=== PATIENT | female | born 1935 | race African-American/Black ===

== ENCOUNTER 2021-10-15 11:12 | Inpatient (IN) | payer MEDICARE, MEDICAID ==
[~2021-10-15] VITALS: Ht 152.4 cm; Wt 90.7 kg
[2021-10-15] MEDS ORDERED: SODIUM CHLORIDE 0.9% 250 ML IV ONE (11:45)
[2021-10-15 12:10] LABS: BASOPHILS % 0.8 % (0.0-2.0); EOSINOPHILS % 3.1 % (0.0-5.0); HEMATOCRIT. 26.7 % (36.0-48.0); HEMOGLOBIN. 9.1 g/dL (12.0-16.0); LYMPHOCYTES % 22.8 % (20.0-50.0); MEAN CORPUSCULAR HEMOGLOBIN 28.3 pg (28.0-32.0); MEAN CORPUSCULAR VOLUME 83.2 fL (81.0-99.0); MEAN PLATELET VOLUME 6.3 fl (7.4-10.4); MONOCYTES % 8.3 % (2.0-8.0); PLATELET 375 x1000/uL (130-400); RED BLOOD CELL COUNT 3.21 mill/uL (4.2-5.4); RED CELL DISTRIBUTION WIDTH 14.9 % (11.6-14.6)
[2021-10-15 12:20] LABS: CHLORIDE 105 mEq/L (98-107)
[2021-10-15 12:26] LABS: PROTHROMBIN TIME 10.8 sec (9.6-11.0)
[2021-10-15] MEDS ORDERED: LOPERAMIDE HCL 2MG CAPSULE PO PRN (20:30)
[2021-10-15] MEDS ORDERED: CLONIDINE 0.1MG TABLET PO PRN (20:30)
[2021-10-15] MEDS ORDERED: ACETAMINOPHEN 325MG TABLET PO PRN ×2 (20:30)
[2021-10-15] MEDS ORDERED: ONDANSETRON HCL 4MG/2ML INJ IV PRN (20:30)
[2021-10-15] MEDS ORDERED: DIPHENHYDRAMINE 50MG/ML VIAL IV PRN (20:30)
[2021-10-15 21:45] VITALS: BP 135/65
[2021-10-15] MEDS: SODIUM CHLORIDE 0.9% INJ 3ML FLUSH IVF SCH (22:30)
[2021-10-16] VITALS (7 sets, daily range): BP systolic 110–161; BP diastolic 40–66
[2021-10-16] MEDS ORDERED: PRAV20TA57 PO (01:04)
[2021-10-16] MEDS ORDERED: ASCO125T PO (01:05)
[2021-10-16] MEDS ORDERED: HYDR-4134 PO (01:06)
[2021-10-16] MEDS ORDERED: CHOL400D7 PO (01:06)
[2021-10-16] MEDS ORDERED: GABA-529 PO (01:11)
[2021-10-16] MEDS ORDERED: CILO100T PO (01:11)
[2021-10-16] MEDS ORDERED: FURO20TA4 PO (01:11)
[2021-10-16] MEDS ORDERED: MECL-159 PO (01:11)
[2021-10-16] MEDS ORDERED: CALC-1042 PO (01:11)
[2021-10-16] MEDS ORDERED: LATA5DRO LEFTEYE (01:11)
[2021-10-16] MEDS ORDERED: DORZ10DR9 LEFTEYE (01:11)
[2021-10-16] MEDS ORDERED: ASPI-1406 PO (01:11)
[2021-10-16] MEDS: SODIUM CHLORIDE 0.9% INJ 3ML FLUSH IVF SCH ×3 (06:31→20:35)
[2021-10-16 07:39] LABS: BASOPHILS % 0.8 % (0.0-2.0); LYMPHOCYTES % 26.4 % (20.0-50.0); MEAN CORPUSCULAR HEMOGLOBIN 27.6 pg (28.0-32.0); MEAN CORPUSCULAR VOLUME 83.3 fL (81.0-99.0); MEAN PLATELET VOLUME 6.7 fl (7.4-10.4); MONOCYTES % 9.9 % (2.0-8.0); NEUTROPHILS % 59.9 % (40.0-76.0); PLATELET 352 x1000/uL (130-400); RED BLOOD CELL COUNT 3.25 mill/uL (4.2-5.4); RED CELL DISTRIBUTION WIDTH 15.1 % (11.6-14.6)
[2021-10-16] MEDS ORDERED: BRIMONIDINE 0.2% OPHTH DROPS 5ML BOTHEYE SCH (09:00)
[2021-10-16] MEDS: AMLODIPINE 2.5MG TABLET PO SCH (09:04)
[2021-10-16] MEDS: BRIMONIDINE 0.2% OPHTH DROPS 5ML BOTHEYE SCH ×2 (12:09→20:36)
[2021-10-16] MEDS ORDERED: SODIUM POLYSTYRENE SULFONATE 15 G/60 ML BOT PO NR (15:30)
[2021-10-17] VITALS: BP 150/69
[2021-10-17 04:00] VITALS: BP 148/69
[2021-10-17] MEDS: SODIUM CHLORIDE 0.9% INJ 3ML FLUSH IVF SCH ×2 (05:32→14:00)
[2021-10-17 08:00] VITALS: BP 136/45
[2021-10-17] MEDS: AMLODIPINE 2.5MG TABLET PO SCH (08:56)
[2021-10-17] MEDS: BRIMONIDINE 0.2% OPHTH DROPS 5ML BOTHEYE SCH (08:56)
[2021-10-17 10:21] LABS: BASOPHILS % 0.9 % (0.0-2.0); EOSINOPHILS % 2.3 % (0.0-5.0); HEMOGLOBIN. 8.4 g/dL (12.0-16.0); LYMPHOCYTES % 25.1 % (20.0-50.0); MEAN CORPUSCULAR HEMOGLOBIN 27.6 pg (28.0-32.0); MEAN CORPUSCULAR VOLUME 82.2 fL (81.0-99.0); MEAN PLATELET VOLUME 6.5 fl (7.4-10.4); MONOCYTES % 9.1 % (2.0-8.0); NEUTROPHILS % 62.6 % (40.0-76.0); PLATELET 331 x1000/uL (130-400); RED BLOOD CELL COUNT 3.04 mill/uL (4.2-5.4); RED CELL DISTRIBUTION WIDTH 15.2 % (11.6-14.6)
[2021-10-17 12:00] VITALS: BP 136/45
[2021-10-17 16:00] VITALS: BP 144/52
[2021-10-17 18:01] LABS: HEPATITIS B SURFACE ANTIGEN NEGATIVE
== END 2021-10-17 18:09 | disposition home or self-care (01) | DRG 391 ==
LOC: ER 11:12 → EDBEDREQ 13:00 → EDBEDREQTM 13:00 → 6WST 14:52 → EDBEDREQTM 14:58 → EDBEDREQ 14:58 → ENRESERV 19:46
PROVIDERS: ADMIT Internal Medicine; ATTEND Internal Medicine
PROC: 5A1D70Z Performance of Urinary Filtration, Intermittent, Less than 6 Hours Per Day (ICD-10-PCS; principal; 2021-10-16)
DX: K52.9 Noninfective gastroenteritis and colitis, unspecified (principal); N18.6 End stage renal disease; I12.0 Hypertensive chronic kidney disease with stage 5 chronic kidney disease or end stage renal disease; E46 Unspecified protein-calorie malnutrition; E11.22 Type 2 diabetes mellitus with diabetic chronic kidney disease; E66.9 Obesity, unspecified; I25.10 Atherosclerotic heart disease of native coronary artery without angina pectoris; I71.4 Abdominal aortic aneurysm, without rupture; K43.9 Ventral hernia without obstruction or gangrene; E87.5 Hyperkalemia; D63.1 Anemia in chronic kidney disease; Z20.822 Contact with and (suspected) exposure to COVID-19; Z68.39 Body mass index [BMI] 39.0-39.9, adult; Z99.2 Dependence on renal dialysis; Z89.611 Acquired absence of right leg above knee; Z96.641 Presence of right artificial hip joint; Z86.79 Personal history of other diseases of the circulatory system; Z86.73 Personal history of transient ischemic attack (TIA), and cerebral infarction without residual deficits
CPT/HCPCS: 36415; 71045; 74176; 80048; 80053; 83605; 84145; 84484; 85025; 86705; 86709; 86803; 87045; 87340; 87426; 87449; 87493; 93005; 99285; A6261; J7030